=== PATIENT | female | born 1990 | race Hispanic/Latino ===

== ENCOUNTER 2019-11-30 21:32 | Emergency (ER) | payer SELFPAY ==
[~2019-11-30 21:32] MED LIST: BACTRIM DS1 TAB PO; CEPHALEXIN500 MG PO; CIPROFLOXACN500 MG PO; CLEOCIN300 MG PO; IBUPROFEN600 MG PO; KEFLEX500 M1 PO; LORTAB 5/3255 MG PO; LORTAB 7.5-3251 TAB PO; LORTAB 7.57.5 MG PO; LORTAB5 PO; MONISTAT VA; MUPIROCIN2 % EX; PRENATA8 PO; PRENATAL1 TA1 PO; PYRIDIUM200 MG PO
[2019-11-30] MEDS ORDERED: CORTISPORIN OTI10 M2 AD (21:52)
[2019-11-30 22:00] VITALS: BP 117/82
== END 2019-11-30 22:20 | disposition home or self-care (01) | DRG 156 ==
LOC: ED 21:32
DX: H60.91 Unspecified otitis externa, right ear (principal)

== ENCOUNTER 2020-06-14 00:05 | Emergency (ER) | payer SELFPAY ==
[~2020-06-14] VITALS: Ht 149.9 cm; Wt 102.7 kg
[~2020-06-14 00:05] MED LIST changes: +CORTISPORIN OTI10 M2 AD
[2020-06-14] MEDS ORDERED: VOLTAREN - GENE75 MG PO (02:24)
[2020-06-14 02:55] VITALS: BP 140/88
== END 2020-06-14 02:55 | disposition home or self-care (01) | DRG 563 ==
LOC: ED 00:05
DX: S83.91XA Sprain of unspecified site of right knee, initial encounter (principal); Y04.0XXA Assault by unarmed brawl or fight, initial encounter; Y92.89 Other specified places as the place of occurrence of the external cause

== ENCOUNTER 2020-12-29 10:53 | Emergency (ER) | payer OTHER ==
[~2020-12-29] VITALS: Ht 149.9 cm; Wt 91.0 kg
[~2020-12-29 10:53] MED LIST changes: +VOLTAREN - GENE75 MG PO
[2020-12-29] MEDS ORDERED: HYDROCO/APAP1 TA9 PO ×2 (12:08→16:26)
[2020-12-29 12:28] VITALS: BP 119/82
== END 2020-12-29 12:35 | disposition home or self-care (01) | DRG 605 ==
LOC: ED 10:53
PROC: 2W3FX1Z Immobilization of Left Hand using Splint (ICD-10-PCS; principal; 2020-12-29)
DX: S60.222A Contusion of left hand, initial encounter (principal); W31.89XA Contact with other specified machinery, initial encounter; Y92.89 Other specified places as the place of occurrence of the external cause; Y99.0 Civilian activity done for income or pay